=== PATIENT | female | born 1970 | race Caucasian/White ===

== ENCOUNTER 2024-10-01 21:53 | Emergency (ER) | payer BC, OTHER ==
[~2024-10-01] VITALS: Ht 152.4 cm; Wt 74.0 kg
[~2024-10-01 21:53] MED LIST: AMOXICILLIN; CLARITHROMYCIN; OMEPRAZOLE
[2024-10-01 22:05] VITALS: BP 115/42; PULSE 68; RESP 18; TEMP 98.6; O2SAT 100; O2SAT 99
[2024-10-01] MEDS: FAMOTIDINE 20MG TABLET PO ONE (22:36)
[2024-10-01] MEDS: ONDANSETRON 4MG ODT PO ONE (22:36)
[2024-10-01] MEDS: ACETAMINOPHEN 325MG TABLET PO ONE (22:36)
[2024-10-01 23:02] LABS: BASOPHILS % 0.3 % (0.0-2.0); EOSINOPHILS % 1.9 % (0.0-5.0); HEMOGLOBIN. 12.3 g/dL (12.0-16.0); LYMPHOCYTES % 15.4 % (20.0-50.0); MEAN CORPUSCULAR HGB CONC 33.4 g/dL (31.0-37.0); MEAN CORPUSCULAR VOLUME 89.7 fL (81.0-99.0); MEAN PLATELET VOLUME 7.9 fl (7.4-10.4); NEUTROPHILS % 77.4 % (40.0-76.0); PLATELET 298 x1000/uL (130-400); RED BLOOD CELL COUNT 4.12 mill/uL (4.2-5.4); RED CELL DISTRIBUTION WIDTH 13.9 % (11.6-14.6); WHITE BLOOD COUNT 10.4 x1000/uL (4.5-11.0)
[2024-10-01 23:03] LABS: CHLORIDE 102 mEq/L (98-107); POTASSIUM 3.8 mEq/L (3.5-5.1); SODIUM 136 mEq/L (136-145)
[2024-10-01 23:05] LABS: CARBON DIOXIDE 27 mEq/L (21-32)
[2024-10-01 23:06] LABS: CALCIUM 9.6 mg/dL (8.7-10.4)
[2024-10-01 23:10] LABS: HCG SCREEN NEGATIVE
[2024-10-01 23:11] LABS: CREATININE 0.7 mg/dL (0.6-1.0); GLUCOSE 131 mg/dL (70-105); UREA NITROGEN BLOOD 15 mg/dL (9-23)
[2024-10-01 23:12] LABS: ALBUMIN 4.2 g/dL (3.2-4.8)
[2024-10-01 23:13] LABS: ALANINE AMINOTRANSFERASE 15 IU/L (10-49); ASPARTATE AMINOTRANSFERASE 17 IU/L (<34); BILIRUBIN TOTAL 0.3 mg/dL (0.1-1.0); PROTEIN TOTAL 7.9 g/dL (6.0-8.3)
[2024-10-01 23:21] LABS: BILIRUBIN DIRECT < 0.1 mg/dL (<=3.0)
[2024-10-02] MEDS ORDERED: ONDA-239 PO (01:00)
[2024-10-02] MEDS ORDERED: FAMO-134 MT (01:00)
== END 2024-10-02 01:16 | disposition home or self-care (01) ==
LOC: ER 21:53
DX: R10.13 Epigastric pain (principal); Z87.19 Personal history of other diseases of the digestive system
CPT/HCPCS: 99284; 74176; 80076; 80048; 84703; 83690; 85025; 36415; 93005; Q0162